=== PATIENT | male | born 1950 | race Two or more races ===

== ENCOUNTER 2024-07-10 18:21 | Inpatient (IN) | payer MEDICARE, MEDICAID, SELFPAY ==
[2024-07-10] VITALS (8 sets, daily range): BP systolic 137–162; BP diastolic 75–96; PULSE 78–144; RESP 18–37; TEMP 37.3–40; O2SAT 89–99; BMI 27.4
--- NOTE | 2024-07-10 19:19 | EDNOTE_ITS ---
ED SOB =RME/HPI General Chief Complaint: Shortness of Breath/Dyspnea Stated Complaint: SOB Time Seen by Provider: 07/10/24 18:59 Arrival date/time: 07/10/24 18:21 RME / HPI RME / HPI Narrative: Dr. Seth?s Main ED Evaluation: 73yo male with pmhx HTN presents to the ED for a chief complaint of shortness of breath. Patient's daughter states the patient was seen 3 days ago at [facility] due to having a cough, wheezing, and shortness of breath. He was prescribed OTC cough syrup and a Z-pack (is currently on day 3). 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 Patient denies any head strikes or loss of consciousness. He denies any headache, neck pain, chest pain, abdominal pain, extremity pain or any other associated symptoms. Denies any chills, sweating or any other associated symptoms. No known allergies. Related Data Previous Rx's ?Medication ?Instructions ?Recorded sulfamethoxazole 400 1 tab PO BID #20 tabs 11/26/21 mg-trimethoprim 80 mg tablet (Bactrim) tramadol 50 mg tablet 50 mg PO BID PRN pain #10 tabs 11/26/21 albuterol sulfate 90 mcg/actuation 2 puff inhalation Q6H PRN 10/08/23 aerosol inhaler shortness of breath or wheezing #8.5 grams benzonatate 200 mg capsule 200 mg PO BID PRN cough #20 caps 10/08/23 prednisone 50 mg tablet 50 mg PO QDAY #7 tabs 10/08/23 Allergies Allergy/AdvReac Type Severity Reaction Status Date / Time No Known Allergies Allergy Unknown Uncoded 03/19/14 09:34 Review of Systems Review of Systems Systems Reviewed: All systems reviewed, normal except as documented Narrative Review of Systems: Gen: No fever, no chills, no weight loss EYES: No discharge, no visual changes, no pain HEENT: No ear pain, no congestion, no sore throat PULM: + shortness of breath, + cough, no congestion, + wheezing CV: No chest pain, no dyspnea on exertion, no palpitations GI: No nausea, no vomiting, no diarrhea, no pain, no constipation : No frequency, no urgency, no dysuria Musc/skel: No joint pain, no back pain Skin: No rash. Warm and dry. Psyc: No hallucinations, no depression Heme/Lymph: No easy bleeding or bruising tendencies Neuro: No weakness, no headache Past Medical History Past Medical History CARDIAC: Negative Congestive Heart Failure RESPIRATORY: Negative Chronic Obstructive Pulmonary Disease (COPD) GENITOURINARY: Positive Renal Disease ENDOCRINE: Negative Diabetes Mellitus Type 1 or Diabetes Mellitus Type 2 Social History SMOKING STATUS: Never smoker ED Exam Narrative Physical exam: GENERAL APPEARANCE: alert and oriented x 4, well-developed, well-nourished, no acute distress VITALS: All vitals were reviewed and the pulse ox is 95% on 4L/NC, which is hypoxic according to my interpretation. HEENT: Normocephalic, atraumatic; pupils equal, round, reactive to light; EOMI; mucous membranes pink, moist; oropharynx clear NECK: Supple LUNGS: no wheezes, rales and rhonchi bilaterally HEART: Tachycardic in the 120s, regular rhythm; normal S1, S2; no murmurs ABDOMEN: non distended; normal BS; soft, no tenderness, no guarding, no rebound; no masses, no organomegaly, no hernia BACK: no CVA tenderness EXTREMITIES: atraumatic; no edema NEUROLOGIC: awake; alert and oriented x4; cranial nerves II-XII grossly intact; no focal sensory or motor deficits PSYCHIATRIC: appropriate mood and affect SKIN: warm, dry, normal color; no rashes Course Course Course Narrative: 1927: Sepsis alert initiated. Orders made at this time are congruent with ED Adult Sepsis Order List. Re-evaluation is to be completed. CXR is ordered for determining the etiology of shortness of breath. 1941: NS IVF started. 2011: Sepsis reassessment performed consisting of lab review, vitals, physical exam including auscultation of heart, lungs, and visual evaluation of capillary refills, mucosal membranes and extremities. Quality Measures Possible source: unknown Blood cultures ordered: yes Antibiotic ordered: Yes Pertinent labs: 07/10/24 07/10/24 19:44 23:16 Lactic Acid 2.3 H mMol/L 1.0 mMol/L (0.4-2.0) (0.4-2.0) Procalcitonin 0.28 ng/ml (0.0-0.49) sepsis Orders Category Date Time Status Bedside COVID-19 Antigen Test NOW Care 07/10/24 21:23 Active Bedside Influenza A&B Antigen Test NOW Care 07/10/24 21:[address] Screening NOW Care 07/10/24 22:26 Active School Cook STAT Care 07/10/24 19:27 Active Continuous Pulse Oximetry STAT Care 07/10/24 19:27 Completed EKG (ED ONLY) *Do not use* NOW Care 07/10/24 19:27 Completed Insert IV NOW Care 07/10/24 19:27 Active NPO STAT Care 07/10/24 19:27 Active Strict Intake and Output Routine Care 07/10/24 19:[address] abdomen pelvis w con Stat Exams 07/10/24 22:26 Ordered EKG (ED Only) Stat Exams 07/10/24 19:27 Draft XR chest 1V portable Stat Exams 07/10/24 19:27 Completed B-Type Natriuretic Peptide Stat Lab 07/10/24 19:44 Completed Blood Culture (Lab) Stat Lab 07/10/24 19:44 Received CBC Stat Lab 07/10/24 19:44 Completed Comprehensive Metabolic Panel Stat Lab 07/10/24 19:44 Completed LDH (Lactate Dehydrogenase) Stat Lab 07/10/24 19:44 Completed Lactate (Lactic Acid) Stat Lab 07/10/24 19:44 Completed Lactic Acid, 3 HR Stat Lab 07/10/24 23:16 Completed Lipase Stat Lab 07/10/24 19:44 Completed Magnesium Stat Lab 07/10/24 19:44 Completed Partial Thromboplastin Time Stat Lab 07/10/24 19:44 Completed Phosphorous Stat Lab 07/10/24 19:44 Completed Procalcitonin Stat Lab 07/10/24 19:44 Completed Prothrombin Time with INR Stat Lab 07/10/24 19:44 Completed Troponin I Stat Lab 07/10/24 19:44 Completed Urinalysis Stat Lab 07/10/24 19:50 Completed Urine Culture Stat Lab 07/10/24 19:50 Received Acetaminophen Ivpb [Ofirmev Inj] Med 07/10/24 19:40 Discontinued 1,000 mg in 100 ml IV NOW Piper/Tazo 3.375 gm [Zosyn] Med 07/10/24 19:27 Discontinued 3.375 gm in 50 ml IV X1 Sodium Chloride 0.9% 1000 ml [Ns] 1,638 ml Med 07/10/24 19:27 Discontinued IV 1,638 mls/hr Vancomycin Inj 1,000 mg Med 07/10/24 19:30 Discontinued Sodium Chloride 0.9% 250 ml [Ns] 250 ml IV X1 Oxygen Delivery NOW RT 07/10/24 19:27 Active Vital Signs Vital signs: Vital Signs Temperature 99.1 F 07/10/24 18:39 Pulse Rate 112 H 07/10/24 18:39 Respiratory Rate 18 07/10/24 18:39 Blood Pressure 156/83 H 07/10/24 18:39 Pulse Oximetry (%) 97 07/10/24 18:39 Oxygen Delivery Method Nasal Cannula 07/10/24 18:39 Oxygen Flow Rate 5 07/10/24 18:39 Shortness of Breath / Dyspnea MDM Narrative MDM Narrative:: Scribe Attestation: 07/10/24 - Ivy Miller am scribing for and in the presence of Dr. Seth. Patient data External records reviewed:: [facility] previous records (Per chart review, patient was seen here on 10/08/23 for near syncope.) Clinical information provided by:: patient Social determinants that could affect healthcare access:: substance use (smokes cigarettes) Patient has the following chronic illnesses:: HTN How is presenting disease/condition affected by chronic disease/condition?: uneffected by Evaluation data The following diagnostics were reviewed and interpreted by me:: lab results, radiology exam(s) and EKG tracing(s) Lab and/or radiology exams considered but not ordered:: none Interpretation Summary: CBC is normal, CMP is normal, Lactic Acid is elevated at 2.3, troponin is normal, Procalcitonin is normal, Bedside COVID and Influenza are negative, according to my interpretation. CXR shows a right perihilar infiltrate, normal cardiac silhouette, sharp diaphragmatic edge, and normal costophrenic angles, according to my interpretation. EKG done at 1938, sinus tachycardia, rate of 122, left axis deviation, no ectopy, left anterior fasicular block, Q waves in lead II, lead III, aVF, V1, and V2, no STEMI, according to my interpretation. ----- Telerad Preliminary Report Draft Patient: HALEY TRIPATHI [facility]. Record#: [id number] Birthdate: 1950 Age/Sex: 73 / M Location: [facility] Attending Dr: Ordering Physician: Date of Service: Procedure(s): Accession Number(s): cc: ~ CT scan of the abdomen and pelvis with intravenous contrast (axial sections with sagittal and coronal reformats) July 11, 2024 at 0054 hours Clinical History: Hematuria. Comparison: No prior study is available for comparison. Findings: Bibasilar dependent atelectasis is present. Emphysematous changes are noted in the lungs. Multiple calcified calculi are noted within the gallbladder, the largest measuring 3 mm, without evidence of gallbladder wall thickening or pericholecystic fluid. The liver, pancreas, spleen, kidneys and adrenals are unremarkable. No evidence of bowel obstruction. There are multiple colonic diverticula without evidence of diverticulitis. The appendix is not definitively visualized; however, there is no evidence of inflammatory process in the right lower quadrant to suggest appendicitis. There is no mesenteric or retroperitoneal adenopathy. The aorta and its branches demonstrate moderate atheromatous calcification with focal aneurysm and eccenteric thrombus in the infrarenal abdominal aorta. The urinary bladder is unremarkable. There is mild prostatomegaly. There is no free fluid or free air. Degenerative changes are identified in the spine. Impression: 1. 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 2. No evidence of bowel obstruction, free air or abscess. 3. No evidence of renal/ureteric calculus or hydroureteronephrosis. 4. Cholelithiasis without evidence of acute cholecystitis. 5. Colonic diverticulosis without evidence of diverticulitis. 6. Other findings as described above. Report Electronically Signed By: Simone Shaw 07/11/2024 2:12:33 AM [EST] Medications / Prescriptions Medications or Prescriptions considered but not ordered:: none Medication administrations:: Medication Administration History Discontinued Medications Sodium Chloride (Ns) 1,638 mls @ 1,638 mls/hr 30 ml/kg infuse over 60 min (1638 ml) IV .Q1H ONE Stop: 07/10/24 20:26 Last Infusion: 07/10/24 20:43 Dose: Infused Documented By: Admin: 07/10/24 19:42 Dose: 1,638 mls/hr Documented By: CAMI Piperacillin/Tazobactam/Dextrose (Zosyn) 3.375 gm in 50 mls @ 100 mls/hr IV X1 ONE Stop: 07/10/24 19:56 Last Infusion: 07/10/24 20:42 Dose: Infused Documented By: Admin: 07/10/24 19:42 Dose: 100 mls/hr Documented By: CAMI Vancomycin HCl 1,000 mg/ (Sodium Chloride) 250 mls @ 150 mls/hr IV X1 ONE Stop: 07/10/24 21:09 Last Infusion: 07/10/24 23:20 Dose: Infused Documented By: Admin: 07/10/24 20:42 Dose: 150 mls/hr Documented By: IMMANUEL Acetaminophen (Ofirmev Inj) 1,000 mg in 100 mls @ 250 mls/hr IV NOW ONE Stop: 07/10/24 20:03 Last Infusion: 07/10/24 20:42 Dose: Infused Documented By: Admin: 07/10/24 19:45 Dose: 250 mls/hr Documented By: CAMI see above, if any Consultations Consultation(s) initiated? (list below): Yes Consultation #1 (Physician, Specialty, Details): Discussed case with [Dr. Farooq] from Hospitalist service regarding admission. Discussed patients ED course, exam findings, labs, and radiology results. The Hospitalist [agrees] to accept the patient for admission. Time: 22:16 Consultation #2 (Physician, Specialty, Details): Dr. Farooq called back, requesting a CT abdomen pelvis due to the patient having hematuria. Time: 22:26 Consultation #3 (Physician, Specialty, Details): Discussed case with [attending Dr. Farooq] from Hospitalist service regarding admission. Discussed patients ED course, exam findings, labs, and radiology results. The Hospitalist [agrees] to accept the patient for admission. Time: 02:21 Diagnosis Shortness of Breath Differential Diagnosis: congestive heart failure, community acquired pneumonia, pulmonary embolism and other (pneumothorax) Most likely diagnosis given after review of the tests above:: see below Admission Indicated Admission indicated?: indicated Admission Request Was there a request for admission?: Yes Admission Attestation Admission request attestation: Discussed case with [] from Hospitalist service regarding admission. Discussed patients ED course, exam findings, labs, and radiology results. The Hospitalist [agrees,declines] to accept the patient for admission. Disposition Plan Disposition Plan: Admit Critical Care Time Critical Care Time Critical Care Time: Yes Total Critical Care Time (min.): 50 Attestation: The high probability of sudden, clinically significant deterioration in the patient?s condition required the highest level of my preparedness to intervene urgently. The services I provided to this patient were to treat and/or prevent clinically significant deterioration. Services included the following: chart data review, reviewing nursing notes and/or old charts, documentation time, crm consultant collaboration regarding findings and treatment options, medication orders and management, direct patient care, vital sign assessments and ordering, interpreting and reviewing diagnostic studies and lab tests. Aggregate critical care time includes only time during which I was engaged in work directly related to the patient?s care, as described above, whether at bedside or elsewhere in the Emergency Department. It did not include time spent performing other reported procedures or the services of residents, students, nurses or physician assistants. Discharge Plan Plan Patient Disposition: Admit Acute Care w/in Hospital Prescriptions/Referrals Prescriptions/Med Rec: No Action sulfamethoxazole-trimethoprim [Bactrim] 400-80 mg tablet 1 tab PO BID Qty: 20 0RF tramadol 50 mg tablet 50 mg PO BID PRN (Reason: pain) Qty: 10 0RF benzonatate 200 mg capsule 200 mg PO BID PRN (Reason: cough) Qty: 20 0RF prednisone 50 mg tablet 50 mg PO QDAY Qty: 7 0RF albuterol sulfate 90 mcg/actuation HFA aerosol inhaler 2 puff inhalation Q6H PRN (Reason: shortness of breath or wheezing) Qty: 8.5 0RF Referrals: Marvin Pisano MD [Primary Care Provider] - In 1 week Problem List Clinical Impression: Dehydration, Severe sepsis Patient/Caregiver Discharge Instructions Print Language: Argentine Stand Alone Forms: Fiona Award Info., Patient Portal Info Letter
--- NOTE | 2024-07-10 19:27 | EKG_ITS ---
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
--- NOTE | 2024-07-10 19:27 | XR_ITS ---
Examination: AP chest single view Technique one AP portable upright chest single view Exam date and time: July 02, 2024 1950 hrs. Comparison October 08, 2023 Indications: Shortness of breath today. Findings: Normal heart size Mild to moderate vascular congestion including central vascular engorgement No lobar pneumonia or pulmonary edema Moderate osteopenia Impression: Mild to moderate vascular congestion including central vascular engorgement No jose pulmonary edema No pneumonia
[2024-07-10] MEDS: PIPER/TAZO 3.375 GM 3.375 GM/50 ML BAG IV (19:42)
[2024-07-10] MEDS: SODIUM CHLORIDE 0.9% 1000 ML 1,638 ML 1638 ML IV (19:42)
[2024-07-10] MEDS: ACETAMINOPHEN IVPB 1,000 MG/100 ML VIAL 250 MG IV (19:45)
[2024-07-10 19:49] LABS: Lactate (Lactic Acid) 2.3 mMol/L (0.4-2.0)
[2024-07-10 19:51] LABS: Basophils % (Auto) 0 % (0-2.5); Eosinophils % (Auto) 0 % (0-10); Hematocrit 47.7 % (41.0-53.0); Hemoglobin 15.9 g/dL (13.5-16.0); Immature Granulocytes % (Auto) 0 % (0-0); Immature Granulocytes Auto 0.03 Thou/mm3 (0.00-0.00); Lymphocytes # (Auto) 0.8 Thou/mm3 (1.0-4.8); Lymphocytes % (Auto) 9 % (10-50); Mean Corpuscular HGB Conc 33.3 g/dl (31.0-37.0); Mean Corpuscular Volume 84 fL (80-100); Monocytes # (Auto) 0.9 Thou/mm3 (0.0-0.8); Monocytes % (Auto) 11 % (0-12); Neutrophils # (Auto) 6.3 Thou/mm3 (1.8-7.7); Neutrophils % (Auto) 79 % (37-80); Nucleated Red Blood Cell % 0 /100 WBC (0); Platelet Count 198 Thou/mm3 (140-440); RDW Standard Deviation 42.9 fL (35.1-43.9); Red Blood Count 5.67 Miln/mm3 (4.50-5.90)
[2024-07-10 20:03] LABS: Collection Type, Urine Clean Catch
[2024-07-10 20:08] LABS: Bilirubin,Urine Negative (Negative); Blood,Urine 2+ (Negative); Clarity,Urine Clear (Clear/Hazy); Color,Urine Yellow (Lt Yel-Yel); Glucose, Urine Negative (Negative); Hyaline Casts,Urine < 1 /hpf (0-1); Ketones,Urine 1+ (Negative); Leukocyte Esterase,Urine Negative (Negative); Nitrite,Urine Negative (Negative); Protein,Urine 1+ (Neg - Trace); RBC,Urine 19 /hpf (0-3); Specific Gravity,Urine 1.028 (1.001-1.035); Squamous Epithelial Cell,Urine < 1 /hpf (0-5); WBC,Urine 3 /hpf (0-5)
[2024-07-10 20:19] LABS: B-Type Natriuretic Peptide 41 pg/mL (0-100)
[2024-07-10 20:22] LABS: Alanine Aminotransferase 19 U/L (10-49); Albumin, Serum 4.4 gm/dL (3.4-4.8); Albumin/Globulin Ratio 2.1 (1.2-2.2); Alkaline Phosphatase 63 U/L (46-116); Anion Gap 11 (7-16); Aspartate Amino Transferase 42 U/L (0-34); BUN/Creatinine Ratio 23 Ratio (12-20); Bilirubin,Total 0.6 mg/dL (0.3-1.2); Blood Urea Nitrogen 27 mg/dL (9-23); Calcium 9.6 mg/dL (8.3-10.6); Calcium (Corrected) 9.6 mg/dL (8.5-10.1); Carbon Dioxide 24.8 mMol/L (20.0-31.0); Chloride 101 mMol/L (98-107); Creatinine (Component) 1.2 mg/dL (0.6-1.3); Estimated Creatinine Clearance 45.8 mL/min (>60); Globulin 2.1 gm/dL (2.3-3.5); Glucose 94 mg/dL (74-106); Lipase 35 U/L (12-53); Osmolality,Calculated 278 (275-295); Phosphorous 2.9 mg/dL (2.4-5.1); Sodium 137 mMol/L (136-145); Total Protein 6.5 gm/dL (5.7-8.2); eGFR > 60 See Note
[2024-07-10 20:30] LABS: INR 1.2 (0.9-1.3); Prothrombin Time 12.9 Seconds (9.0-12.2)
[2024-07-10 20:39] LABS: Procalcitonin 0.28 ng/ml (0.0-0.49)
[2024-07-10] MEDS: Vancomycin Inj 1,000 MG in SODIUM CHLORIDE 0.9% 250 ML 250 ML 150 MG IV (20:42)
[2024-07-10 22:00] LABS: LDH (Lactate Dehydrogenase) 263 U/L (120-246)
--- NOTE | 2024-07-10 22:26 | XR_ITS ---
Examination: CT abdomen with intravenous contrast CT pelvis with intravenous contrast 2-D coronal reconstructions 2-D sagittal reconstructions Date and time of exam:July 11, 2024 0054 hrs. Indications: Abdominal pain hematuria onset today Comparison: May 18, 2021. CTDI: vol (mGy) 5.84 DLP: (mGycm) 318 Technique: Multiple axial sections of the abdomen and pelvis have been obtained. 64 slice high-resolution scanner used. 3 mm axial sections have been obtained, post intravenous injection 60 cc [id number] 2-D sagittal, coronal reconstructions obtained. Low dose protocols were performed. One or more of the following dose reduction techniques were used; automated exposure control, adjustment of the mA and/or KV according to patient size, use of iterative reconstruction technique. Findings: Liver is irregular in contour with fatty infiltration Multiple small gallstones Spleen is not enlarged Gastric mucosa is thickened No pancreatic or adrenal mass No renal or ureteral calculi Transverse dimension infrarenal abdominal aorta 3 cm with significant thrombus in the distal abdominal aorta, image 92, 40% stenosis No pericecal inflammatory change Scattered colonic diverticulosis, no diverticulitis Transverse prostate dimension 4.8 cm have Advanced degenerative disc disease L5-S1 Impression: Liver is irregular in contour, primary hepatocellular disease pattern Cholelithiasis, negative for cholecystitis No renal or ureteral calculi Mild aneurysmal dilatation infrarenal abdominal aorta with significant thrombus in the distal abdominal aorta causing 40% stenosis Colonic diverticulosis, no diverticulitis No bowel obstruction
[2024-07-10 22:47] LABS: Reflex Lactate? Y
[2024-07-11] VITALS (16 sets, daily range): BP systolic 128–160; BP diastolic 73–92; PULSE 75–105; RESP 17–94; TEMP 36.4–37.1; O2SAT 92–100; BMI 24.6
--- NOTE | 2024-07-11 02:12 | PRELIM_ITS ---
CT scan of the abdomen and pelvis with intravenous contrast (axial sections with sagittal and coronal reformats) July 11, 2024 at 0054 hoursClinical History: Hematuria.Comparison: No prior study is available for comparison. Findings:Bibasilar dependent atelectasis is present. Emphysematous changes are noted in the lungs. Multiple calcified calculi are noted within the gallbladder, the largest jasvir uring 3 mm, without evidence of gallbladder wall thickening or pericholecystic fluid. The liver, vo creas, spleen, kidneys and adrenals are unremarkable.No evidence of bowel obstruction. There are mult iple colonic diverticula without evidence of diverticulitis. The appendix is not definitively visuali zed; however, there is no evidence of inflammatory process in the right lower quadrant to suggest fernando endicitis. There is no mesenteric or retroperitoneal adenopathy. The aorta and its branches demonstra te moderate atheromatous calcification with focal aneurysm and eccenteric thrombus in the infrarenal abdominal aorta. The urinary bladder is unremarkable. There is mild prostatomegaly. There is no free fluid or free air.Degenerative changes are identified in the spine. Impression:1. 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 2. No evidence of bowel obstruction, free air or abscess. 3. No evidence of renal/ureteric calculus or hydroureteronephrosis. 4. Cholelithiasis wi thout evidence of acute cholecystitis. 5. Colonic diverticulosis without evidence of diverticulitis. 6. Other findings as described above. Report Electronically Signed By: Simone Shaw 07/11/2024 2:12:3 3 AM [EST]
--- NOTE | 2024-07-11 04:08 | PD.RESHP ---
Documentation for date of: 07/11/24 [facility] History of Present Illness Chief complaint: Shortness of breath, cough, myalgia History of present illness: Mr Gage is a 73-year-old male with past medical history of COPD/asthma, hypothyroidism and hypertension who presented to [facility] on 07/10/24 with chief complaint of shortness of breath cough and myalgias. Patient reported that his symptoms started about 2 weeks ago, complains of shortness of breath, productive cough with clear expectoration, myalgias and bodyaches which have progressed over the course of 2 weeks, he did see his primary care doctor at [facility] who prescribed azithromycin for his symptoms but they did not improve. He has no other complaints, does not use any supplemental oxygen at home, denies any sick contacts, recent travel denies any chest pain and headache. ED Course: Patient did develop fever 104, tachypnea, respiratory rate 37 in ED, patient met SIRS criteria 3/4. ED Vitals: On presentation BP 156/83, P112, RR 18, temp 99.1, O2 sat 97 patient on 5 L nasal cannula ED Labs:Patient patient labs in ED significant for BUN 27, lactate 2.3, AST 42, LDH 263, globulin 2.1 ED Imaging:Chest x-ray in ED significant for mild to moderate vascular congestion including central vascular engorgement, no jose pulmonary edema no pneumonia. Preliminary CTAP with contrast report shows Focal aneurysm with eccenteric thrombus in the infrarenal abdominal aorta. No evidence of bowel obstruction, free air or abscess. No evidence of renal/ureteric calculus or hydroureteronephrosis. Cholelithiasis without evidence of acute cholecystitis. Colonic diverticulosis without evidence of diverticulitis. ED Treatment:Patient was given 1.638 L NaCl, Zosyn vancomycin and Tylenol 1000 mg in ED Patient admitted for acute hypoxic respiratory failure secondary to community-acquired pneumonia. Review of Systems Review of Systems Narrative Review of Systems: ROS: -CONSTITUTIONAL: Denies weight loss, positive for fever and chills. -HEENT: Denies changes in vision and hearing. Positive for blindness in left eye. -RESPIRATORY: Positive for SOB and cough. -CV: Denies palpitations and Chest Pain. -GI: Denies abdominal pain, nausea, vomiting,constipation and diarrhea. -: Denies dysuria and urinary frequency. -MSK: Positive for myalgia and denies joint pain. -SKIN: Denies rash and pruritus. -NEUROLOGICAL: Denies headache and syncope. -PSYCHIATRIC: Denies recent changes in mood. Denies anxiety and depression. Past Medical History Past Medical History Comments PMH COMMENT: PMH: Positive for COPD/asthma, hypothyroidism and hypertension PSHx: Left eye surgery Allergies: No known allergies Social history: -Smoking: Positive for smoking 1 pack/day for 50 years in the past -Alcohol Use: Reports drinking about 1 beer per day, last drink about a week ago -Illicit Drug Use: Denies -Occupation: Worked for [employer] in the past Family History: No significant family history Exam Vital Signs Temp Pulse Resp BP Pulse Ox O2 Del Method O2 Flow Rate 98.2 F 80 18 146/82 H 100 Nasal Cannula 4 07/11/24 00:42 07/11/24 00:42 07/11/24 00:42 07/11/24 00:42 07/11/24 00:42 07/11/24 00:42 07/11/24 00:42 Narrative Exam Physical Exam General: Awake and in no acute distress. Conversational and non-toxic appearing. HEENT: Normocephalic, atraumatic, mucous membranes moist. Positive for blindness in left eye. Heart: Regular rate and rhythm, no murmurs. Lungs: Mild crackles bilaterally, no wheezing. Abdomen: Soft, nondistended, nontender, positive bowel sounds. ?No guarding or rebound tenderness. Neurologic: Alert and oriented x3, no gross neurological deficit, and patient able to move all 4 extremities. Extremities: No edema. Skin: No rash or ecchymoses. Results: Labs 07/11/24 04:27 07/11/24 04:27 Labs: Short CBC 07/10/24 Range/Units 19:44 WBC 8.0 (3.8-10.6) Thou/mm3 Hgb 15.9 (13.5-16.0) g/dL Hct 47.7 (41.0-53.0) % Plt Count 198 (140-440) Thou/mm3 BMP 07/10/24 19:44 Sodium 137 Potassium 4.0 Chloride 101 Carbon Dioxide 24.8 BUN 27 H Creatinine 1.2 Glucose 94 Calcium 9.6 Cardiac Enzymes 07/10/24 Range/Units 19:44 Troponin I 0.020 (0.0-0.045) ng/mL Liver Function 07/10/24 Range/Units 19:44 Total Bilirubin 0.6 (0.3-1.2) mg/dL AST 42 H (0-34) U/L ALT 19 (10-49) U/L Alkaline Phosphatase 63 (46-116) U/L Albumin 4.4 (3.4-4.8) gm/dL Urine 07/10/24 Range/Units 19:50 Urine Color Yellow (Lt Yel-Yel) Urine Clarity Clear (Clear/Hazy) Urine pH 6.0 (5.0-7.0) Ur Specific [place] 1.028 (1.001-1.035) Urine Protein 1+ A (Neg - Trace) Urine Glucose (UA) Negative (Negative) Quality Measures Quality Measures sepsis Current suspected stage: ruled out Possible source: unknown Blood cultures ordered: yes Antibiotic ordered: Yes Advance care planning discussed with:: patient Medications Home Medications and Allergies Allergies Allergy/AdvReac Type Severity Reaction Status Date / Time No Known Allergies Allergy Unverified 07/11/24 06:09 Visit Medications Acetaminophen (Acetaminophen 325 Mg Tablet) 650 mg PO Q6H PRN PRN Reason: Pain and Fever >100.3 Stop: 08/10/24 03:48 Albuterol/Ipratropium (Albuterol/Ipratropium (Duoneb) Rt Gayla 3 Ml Nebu) 3 ml INH Q6HRRT SONDRA Stop: 08/10/24 06:59 Benzonatate (Benzonatate 100 Mg Capsule) 100 mg PO Q8HR PRN; Protocol PRN Reason: COUGH Stop: 08/10/24 04:00 Guaifenesin (Guaifenesin Syrup 200 Mg/10 Ml Udc) 100 mg PO QID PRN; Protocol PRN Reason: COUGH Stop: 08/10/24 04:02 Heparin Sodium (Porcine) (Heparin Sod Inj 5000 Unit/Ml Vial) 5,000 unit SC Q8HR SONDRA Stop: 07/25/24 05:59 Ceftriaxone Sodium/Dextrose (Rocephin/D5w 1gm Iv Premix) 50 mls @ 100 mls/hr IV QDAY SONDRA Stop: 07/18/24 03:58 Doxycycline Hyclate 100 mg/ (Sodium Chloride) 100 mls @ 100 mls/hr IV BID SONDRA Stop: 07/18/24 08:59 Ceftriaxone Sodium/Dextrose (Rocephin/D5w 1gm Iv Premix) 50 mls @ 100 mls/hr IV X1 ONE Stop: 07/11/24 04:44 Doxycycline Hyclate 100 mg/ (Sodium Chloride) 100 mls @ 100 mls/hr IV X1 ONE Stop: 07/11/24 05:14 Ondansetron HCl (Ondansetron Inj 2 Mg/Ml Inj 2 Ml) 4 mg IV Q6H PRN; Protocol PRN Reason: NAUSEA OR VOMITING Stop: 08/10/24 03:48 Sennosides (Senna Tablet) 1 tab PO QDAY SONDRA; Protocol Stop: 08/10/24 08:59 Discontinued Medications Sodium Chloride (Ns) 1,638 mls @ 1,638 mls/hr 30 ml/kg infuse over 60 min (1638 ml) IV .Q1H ONE Stop: 07/10/24 20:26 Last Infusion: 07/10/24 20:43 Dose: Infused Piperacillin/Tazobactam/Dextrose (Zosyn) 3.375 gm in 50 mls @ 100 mls/hr IV X1 ONE Stop: 07/10/24 19:56 Last Infusion: 07/10/24 20:42 Dose: Infused Vancomycin HCl 1,000 mg/ (Sodium Chloride) 250 mls @ 150 mls/hr IV X1 ONE Stop: 07/10/24 21:09 Last Infusion: 07/10/24 23:20 Dose: Infused Acetaminophen (Ofirmev Inj) 1,000 mg in 100 mls @ 250 mls/hr IV NOW ONE Stop: 07/10/24 20:03 Last Infusion: 07/10/24 20:42 Dose: Infused Sodium Chloride (Sodium Chloride Rt 10% 15 Ml Nebu) 5 ml INH X1 ONE Stop: 07/11/24 03:50 Assessment & Plan Plan Summary: Mr Gage is a 73-year-old male with past medical history of COPD/asthma, hypothyroidism and hypertension who presented to [facility] on 07/10/24 with chief complaint of shortness of breath cough and myalgias. Patient admitted for acute hypoxic respiratory failure secondary to community-acquired pneumonia. # Acute hypoxic respiratory failure 2/2 # Community-acquired pneumonia # SIRS 3/4 positive, suspicion of sepsis # COPD vs Asthma -In ED temp 104, RR 37, heart rate 124, patient met SIRS 3/4 criteria with source pulmonary. Elevated lactate 2.3, improved with IV fluid. -Complains of progressive shortness of breath productive cough with clear expectoration, myalgias and bodyaches since 2 weeks, failed outpatient therapy on azithromycin. -Does use albuterol inhaler at home for wheezing, shortness of breath, chronic smoker in the past, 50 pack years. Does not use supplemental oxygen at home currently requiring 4 L on nasal cannula. -Bedside flu and COVID-negative -Chest x-ray in ED significant for mild to moderate vascular congestion including central vascular engorgement, no jose pulmonary edema no pneumonia -Patient was given 1.638 L NaCl, Zosyn vancomycin and Tylenol 1000 mg in ED. -Curb 65 score 3 points Plan: -Continue ceftriaxone and doxycycline (07/10- -Supplemental oxygen as needed -Tylenol as needed for fever -MRSA nasal screen -Follow-up RSV, Legionella -Sputum culture/Gram stain -Follow-up blood and urine culture -DuoNebs scheduled every 6 hours #Infrarenal abdominal aortic aneurysm Preliminary CTAP with contrast report shows Focal aneurysm with eccenteric thrombus in the infrarenal abdominal aorta. Called telemetry radiology to confirm size of AAA, Dr. Shaw reported size to be about 3 cm, patient's record reviewed CT abdomen pelvis from 2020 shows infrarenal abdominal aorta dimension 29 mm. Patient is asymptomatic denies any back pain. Stable size of the incidental finding, no thrombus in the old CTAP though. Plan: -Monitor for symptoms -Consider outpatient follow-up with vascular surgeon -Follow final read by radiology # Hypothyroidism # Hypertension # Complete blindness left eye -Blood pressure 146/82 currently, will hold antihypertensives -Resumed home dose levothyroxine 50 mcg DVT prophylaxis: Heparin GI prophylaxis: Not indicated Diet: Cardiac Lines: Peripheral IV Code status: Full code Case discussed with Attending Dr. Gomez. Nirav Tejada PGY1 Attending Provider Attestation/Addendum 73-year-old male patient who is a chronic smoker was admitted for shortness of breath, wheezing. In the ER the patient was noted to be hypoxic. Dr. Seth called me for admission for sepsis possible pneumonia. He noted perihilar infiltrates. Patient had CT scan of the abdomen showing infrarenal aortic aneurysm with thrombus.. Patient denies chest pain no back pain. Blood pressure is stable. Patient has microscopic hematuria. He is alert and oriented. He will be admitted for further management.
[2024-07-11 04:38] LABS: Basophils % (Auto) 0 % (0-2.5); Eosinophils % (Auto) 0 % (0-10); Hematocrit 44.3 % (41.0-53.0); Hemoglobin 14.7 g/dL (13.5-16.0); Immature Granulocytes % (Auto) 0 % (0-0); Immature Granulocytes Auto 0.02 Thou/mm3 (0.00-0.00); Lymphocytes # (Auto) 1.4 Thou/mm3 (1.0-4.8); Lymphocytes % (Auto) 18 % (10-50); Mean Corpuscular HGB Conc 33.2 g/dl (31.0-37.0); Mean Corpuscular Hemoglobin 28.3 pg (25.0-35.0); Mean Corpuscular Volume 85 fL (80-100); Monocytes # (Auto) 0.7 Thou/mm3 (0.0-0.8); Monocytes % (Auto) 9 % (0-12); Neutrophils # (Auto) 5.8 Thou/mm3 (1.8-7.7); Neutrophils % (Auto) 73 % (37-80); Nucleated Red Blood Cell % 0 /100 WBC (0); Platelet Count 158 Thou/mm3 (140-440); RDW Standard Deviation 43.8 fL (35.1-43.9); White Blood Count 8.1 Thou/mm3 (3.8-10.6)
[2024-07-11] MEDS: cefTRIAXone/D5w 1gm IV premix 50 ML IV (04:40)
[2024-07-11 04:59] LABS: Alanine Aminotransferase 12 U/L (10-49); Albumin/Globulin Ratio 1.9 (1.2-2.2); Alkaline Phosphatase 52 U/L (46-116); Anion Gap 7 (7-16); Aspartate Amino Transferase 32 U/L (0-34); BUN/Creatinine Ratio 19 Ratio (12-20); Bilirubin,Total 0.7 mg/dL (0.3-1.2); Blood Urea Nitrogen 17 mg/dL (9-23); Calcium 8.5 mg/dL (8.3-10.6); Calcium (Corrected) 8.5 mg/dL (8.5-10.1); Carbon Dioxide 25.1 mMol/L (20.0-31.0); Cardiac Risk Estimate 3.1 RATIO (4.0-6.7); Chloride 104 mMol/L (98-107); Cholesterol 122 mg/dL (132-200); Creatinine (Component) 0.9 mg/dL (0.6-1.3); Estimated Creatinine Clearance 61.1 mL/min (>60); Globulin 2.1 gm/dL (2.3-3.5); Glucose 83 mg/dL (74-106); HDL Cholesterol 40 mg/dL (40-60); LDL Cholesterol,Calculated 68 mg/dL (0-130); Osmolality,Calculated 272 (275-295); Phosphorous 3.2 mg/dL (2.4-5.1); Sodium 136 mMol/L (136-145); Thyroid Stimulating Hormone 1.35 uIU/mL (0.55-4.78); Total Protein 6.1 gm/dL (5.7-8.2); Triglycerides 71 mg/dL (30-150); eGFR > 60 See Note
[2024-07-11] MEDS: DOXYCYCLINE INJ 100 MG in SODIUM CHLORIDE 0.9% (P) 100 ML IV ×2 (05:53→20:45)
[2024-07-11] MEDS: LEVOTHYROXINE SODIUM 25 MCG TABLET 50 MCG PO (05:58)
[2024-07-11] MEDS: HEPARIN SOD INJ 5000 UNIT/ML VIAL SC ×3 (06:00→21:47)
[2024-07-11 07:01] LABS: Respiratory Syncytial Virus Ag Negative (Negative)
[2024-07-11] MEDS: ALBUTEROL/IPRATROPIUM (Duoneb) RT SOL 3 ML NEBU INH ×3 (07:09→19:30)
[2024-07-11] MEDS: SENNA TABLET 1 TAB PO (08:24)
--- NOTE | 2024-07-11 11:44 | ESPR_ITS ---
Documentation for date of: 07/11/24 Subjective Subjective Interval history: No acute overnight events. Continued on 1 L NC, satting well, breathing okay. Denies fever, chills, headaches, chest pain, sob, cough, GI or urinary symptoms. Exam Vital Signs Temp Pulse Resp BP Pulse Ox O2 Del Method O2 Flow Rate 98.4 F 105 H 19 146/83 H 98 Nasal Cannula 1 07/11/24 07:54 07/11/24 08:00 07/11/24 07:54 07/11/24 07:54 07/11/24 07:54 07/11/24 07:54 07/11/24 07:54 Narrative Exam GENERAL: Normal appearing elderly male, no apparent distress HEENT: NCAT.?[place]. Oral mucosa is moist. Patent Nares. NECK: Supple, nontender, no thyromegaly, no meningismus, no JVD, no step offs CHEST: Symmetrical, atraumatic, and with equal expansion, Nontender on palpation no deformity and no crepitus. CARDIOVASCULAR: RRR, no m/g/r LUNGS: Mild wheezing and coarse breath sound bilateral. No signs of respiratory distress. ABDOMEN: Soft, flat, nontender. No guarding/rebound tenderness/masses. +BS. No abdominal bruits. EXTREMITIES: Nontender.? No edema/cyanosis.?Moves all 4 extremities well, with full ROM and good CSM. SKIN: Warm and dry, no jaundice/rashes. MSK: No lumbar or midline, no CVA, no paraspinal muscle spasm or tenderness. NEURO: P[place]TM[place] x4, No focal neurologic deficits. Pre-existing left eye blindness. PSYCHIATRIC: Normal mood and affect, cooperative, no SI or HI or hallucinations. Objective Labs 07/11/24 04:27 07/11/24 04:27 Labs: Laboratory Results - last 24 hr 07/10/24 07/10/24 07/10/24 19:44 19:50 23:16 WBC 8.0 RBC 5.67 Hgb 15.9 Hct 47.7 MCV 84 MCH 28.0 MCHC 33.3 RDW Std Deviation 42.9 Plt Count 198 Neut % (Auto) 79 Lymph % (Auto) 9 L [place] % (Auto) 11 Eos % (Auto) 0 Baso % (Auto) 0 Neut # (Auto) 6.3 Lymph # (Auto) 0.8 L [place] # (Auto) 0.9 H Eos # (Auto) 0.0 Baso # (Auto) 0.0 Immature Gran # (Auto) 0.03 H Absolute Nucleated RBC 0.00 Immature Gran % 0 Nucleated RBC % 0 PT 12.9 H INR 1.2 APTT 29.0 Sodium 137 Potassium 4.0 Chloride 101 Carbon Dioxide 24.8 Anion Gap 11 BUN 27 H Creatinine 1.2 Estim Creat Clear Calc 45.8 L eGFR > 60 BUN/Creatinine Ratio 23 H Glucose 94 Calculated Osmolality 278 Lactic Acid 2.3 H 1.0 Calcium 9.6 Corrected Calcium 9.6 Phosphorus 2.9 Magnesium 2.0 Total Bilirubin 0.6 AST 42 H ALT 19 Alkaline Phosphatase 63 Lactate Dehydrogenase 263 H Troponin I 0.020 B-Natriuretic Peptide 41 Total Protein 6.5 Albumin 4.4 Globulin 2.1 L Albumin/Globulin Ratio 2.1 Triglycerides Cholesterol LDL Cholesterol, Calc HDL Cholesterol Cholesterol/HDL Ratio Lipase 35 Procalcitonin 0.28 TSH Ur Collection Type Clean Catch Urine Color Yellow Urine Clarity Clear Urine pH 6.0 Ur Specific [place] 1.028 Urine Protein 1+ A Urine Glucose (UA) Negative Urine Ketones 1+ A Urine Blood 2+ A Urine Nitrite Negative Urine Bilirubin Negative Urine Urobilinogen (Auto) 2.0 Ur Leukocyte Esterase Negative Urine RBC 19 H Urine WBC 3 Ur Squamous Epith Cells < 1 Urine Bacteria None Hyaline Casts < 1 RSV Rapid 07/11/24 07/11/24 04:27 04:49 WBC 8.1 RBC 5.20 Hgb 14.7 Hct 44.3 MCV 85 MCH 28.3 MCHC 33.2 RDW Std Deviation 43.8 Plt Count 158 D Neut % (Auto) 73 Lymph % (Auto) 18 [place] % (Auto) 9 Eos % (Auto) 0 Baso % (Auto) 0 Neut # (Auto) 5.8 Lymph # (Auto) 1.4 [place] # (Auto) 0.7 Eos # (Auto) 0.0 Baso # (Auto) 0.0 Immature Gran # (Auto) 0.02 H Absolute Nucleated RBC 0.00 Immature Gran % 0 Nucleated RBC % 0 PT INR APTT Sodium 136 Potassium 4.0 Chloride 104 Carbon Dioxide 25.1 Anion Gap 7 BUN 17 Creatinine 0.9 Estim Creat Clear Calc 61.1 eGFR > 60 BUN/Creatinine Ratio 19 Glucose 83 Calculated Osmolality 272 L Lactic Acid Calcium 8.5 Corrected Calcium 8.5 Phosphorus 3.2 Magnesium 2.0 Total Bilirubin 0.7 AST 32 ALT 12 Alkaline Phosphatase 52 Lactate Dehydrogenase Troponin I B-Natriuretic Peptide Total Protein 6.1 Albumin 4.0 Globulin 2.1 L Albumin/Globulin Ratio 1.9 Triglycerides 71 Cholesterol 122 L LDL Cholesterol, Calc 68 HDL Cholesterol 40 Cholesterol/HDL Ratio 3.1 L Lipase Procalcitonin TSH 1.35 Ur Collection Type Urine Color Urine Clarity Urine pH Ur Specific [place] Urine Protein Urine Glucose (UA) Urine Ketones Urine Blood Urine Nitrite Urine Bilirubin Urine Urobilinogen (Auto) Ur Leukocyte Esterase Urine RBC Urine WBC Ur Squamous Epith Cells Urine Bacteria Hyaline Casts RSV Rapid Negative Quality Measures Quality Measures sepsis Current suspected stage: ruled out Possible source: unknown Blood cultures ordered: yes Antibiotic ordered: Yes Advance care planning discussed with:: patient Assessment & Plan Assessment Current Active Medications: Generic Name Dose Route Start Last Admin Trade Name Freq PRN Reason Stop Dose Admin Acetaminophen 650 mg 07/11/24 03:49 Acetaminophen 325 Mg Tablet PO 08/10/24 03:48 Q6H PRN Pain and Fever >100.3 Albuterol/Ipratropium 3 ml 07/11/24 07:00 07/11/24 07:09 Albuterol/Ipratropium (Duoneb) Rt Gayla 3 Ml Nebu INH 08/10/24 06:59 3 ml Q6HRRT SONDRA Administration Benzonatate 100 mg 07/11/24 06:09 Benzonatate 100 Mg Capsule PO 08/10/24 06:08 Q8HR PRN COUGH Protocol Guaifenesin 100 mg 07/11/24 06:10 Guaifenesin Syrup 200 Mg/10 Ml Udc PO 08/10/24 06:09 QID PRN COUGH Protocol Heparin Sodium (Porcine) 5,000 unit 07/11/24 06:00 07/11/24 06:00 Heparin Sod Inj 5000 Unit/Ml Vial SC 07/25/24 05:59 5,000 unit Q8HR SONDRA Administration Ceftriaxone Sodium/Dextrose 50 mls @ 100 mls/hr 07/12/24 09:00 Rocephin/D5w 1gm Iv Premix IV 07/18/24 08:59 QDAY SONDRA Doxycycline Hyclate 100 mg/ 100 mls @ 100 mls/hr 07/11/24 21:00 Sodium Chloride IV 07/18/24 08:59 BID SONDRA Levothyroxine Sodium 50 mcg 07/11/24 06:00 07/11/24 05:58 Levothyroxine Sodium 25 Mcg Tablet PO 08/10/24 05:59 50 mcg ACBR SONDRA Administration Nicotine 21 mg 07/11/24 11:00 Nicotine Patch 21 Mg/24 Hr Patch.Td24 TOP 08/10/24 10:59 QDAY SONDRA Ondansetron HCl 4 mg 07/11/24 03:49 Ondansetron Inj 2 Mg/Ml Inj 2 Ml IV 08/10/24 03:48 Q6H PRN NAUSEA OR VOMITING Protocol Sennosides 1 tab 07/11/24 09:00 07/11/24 08:24 Senna Tablet PO 08/10/24 08:59 1 tab QDAY SONDRA Administration Protocol Plan Summary: 73-year-old male with PMH of COPD/asthma, hypothyroidism, HTN, presenting with SOB and cough, admitted for AHRF 2/2 pneumonia versus COPD/asthma exacerbation. Continued on ANTIBIOTICS, DuoNebs. Pending cultures including RSV and Legionella. Pending cardio recommendations for abdominal aortic thrombus found on CT. Appreciate recommendation from cardiology. Acute hypoxic respiratory failure 2/2 (improving) Community-acquired pneumonia COPD vs Asthma exacerbation 3/4 SIRS positive, likely sepsis (resolved) Lactic acidosis (resolved) Febrile, tachycardic, tachypneic, lactic acid on admission, all solved after IV fluids. Bedside flu and COVID-negative. CXR no pneumonia but showed mild/moderate vascular congestion ? Continue CEFTRIAXONE (07/10 to [present]) ? Continue DOXYCYCLINE (07/10 to [present]) ? Scheduled DuoNebs ? Oxygen PRN ? Pending sputum/blood cultures, RSV, Legionella, MRSA. Infrarenal AAA with Aortic thrombus, 40% stenosis CT showed 3 cm aneurysmal dilation of infrarenal abdominal aorta with significant thrombus causing 40% stenosis. Compared to CT from 2020 which showed 2.9 cm aneurysm at the same site, without thrombus. Patient need to be heparinized for this. Currently asymptomatic, intact bilateral lower extremity pulses. Denies lower extremity pain. Case discussed with cardiology over the phone who recommended BABY ASPIRIN. ? Started ASPIRIN 81 mg daily. Hypothyroidism Hypertension Holding home ANTIHYPERTENSIVE, currently normotensive ? Continued home LEVOTHYROXINE 50 mcg ? Daily vitals Tobacco dependence ? Started NICOTINE patch daily Left eye blindness Chronic, no occasions for intervention at this time. Health maintenance Diet: Cardiac GI prophylaxis: Not indicated DVT prophylaxis: HEPARIN Antibiotics: CEFTRIAXONE, DOXYCYCLINE CODE STATUS: Full code Disposition: [facility], cardiology recommendations for aortic thrombus Patient case was discussed with attending, Dr. Jose Munoz DO and senior resident Dr. Pace. Maryam Floyd DO PGYI Attending Provider Attestation/Addendum As well as I have discussed and was present for the essential components of the history, physical examination, diagnosis, and treatment plan with the resident. I agree with the patient's care as documented by the resident and amended herein by me. Eriberto Munoz DO. Patient seen and evaluated this AM. No acute events overnight, vital signs stable, patient afebrile. CBC and BMP largely unremarkable. For now we will continue ceftriaxone and doxycycline for pneumonia, cardiology also consulted for imaging findings of infrarenal AAA with possible aortic thrombus/stenosis, appreciate recommendations. Patient states he does feel improved, will continue to monitor closely [place]. Although this document has been carefully reviewed, there may still be some phonetic and other typographical errors. These errors are purely grammatical due to imperfections in the software program and should not be construed in any way to compromise the substance of the patient's medical care during this visit.
[2024-07-11] MEDS: NICOTINE PATCH 21 MG/24 HR PATCH.TD24 TOP (11:46)
[2024-07-11] MEDS: ASPIRIN EC 81 MG TABEC PO (14:10)
[2024-07-11] MEDS: ACETAMINOPHEN 325 MG TABLET 650 MG PO (23:41)
[2024-07-12] VITALS (10 sets, daily range): BP systolic 119–169; BP diastolic 59–99; PULSE 73–94; RESP 18–96; TEMP 36.1–37; O2SAT 93–100
[2024-07-12] MEDS: ALBUTEROL/IPRATROPIUM (Duoneb) RT SOL 3 ML NEBU INH ×4 (01:28→19:30)
[2024-07-12] MEDS: LEVOTHYROXINE SODIUM 25 MCG TABLET 50 MCG PO (05:20)
[2024-07-12] MEDS: HEPARIN SOD INJ 5000 UNIT/ML VIAL SC ×3 (05:22→22:22)
[2024-07-12 06:15] LABS: Basophils % (Auto) 0 % (0-2.5); Eosinophils % (Auto) 0 % (0-10); Hematocrit 42.4 % (41.0-53.0); Hemoglobin 14.1 g/dL (13.5-16.0); Immature Granulocytes % (Auto) 0 % (0-0); Immature Granulocytes Auto 0.01 Thou/mm3 (0.00-0.00); Lymphocytes # (Auto) 1.7 Thou/mm3 (1.0-4.8); Lymphocytes % (Auto) 29 % (10-50); Mean Corpuscular HGB Conc 33.3 g/dl (31.0-37.0); Mean Corpuscular Hemoglobin 28.1 pg (25.0-35.0); Mean Corpuscular Volume 85 fL (80-100); Monocytes # (Auto) 0.5 Thou/mm3 (0.0-0.8); Monocytes % (Auto) 8 % (0-12); Neutrophils # (Auto) 3.8 Thou/mm3 (1.8-7.7); Neutrophils % (Auto) 63 % (37-80); Nucleated Red Blood Cell % 0 /100 WBC (0); Platelet Count 161 Thou/mm3 (140-440); RDW Standard Deviation 43.2 fL (35.1-43.9); Red Blood Count 5.01 Miln/mm3 (4.50-5.90)
[2024-07-12 06:26] LABS: Alanine Aminotransferase 14 U/L (10-49); Albumin, Serum 3.6 gm/dL (3.4-4.8); Albumin/Globulin Ratio 1.7 (1.2-2.2); Alkaline Phosphatase 50 U/L (46-116); Anion Gap 10 (7-16); Aspartate Amino Transferase 32 U/L (0-34); BUN/Creatinine Ratio 16 Ratio (12-20); Bilirubin,Total 0.4 mg/dL (0.3-1.2); Blood Urea Nitrogen 13 mg/dL (9-23); Calcium 9.1 mg/dL (8.3-10.6); Calcium (Corrected) 9.4 mg/dL (8.5-10.1); Carbon Dioxide 24.9 mMol/L (20.0-31.0); Chloride 105 mMol/L (98-107); Creatinine (Component) 0.8 mg/dL (0.6-1.3); Estimated Creatinine Clearance 62.6 mL/min (>60); Globulin 2.1 gm/dL (2.3-3.5); Glucose 79 mg/dL (74-106); Magnesium 1.9 mg/dL (1.6-2.6); Osmolality,Calculated 278 (275-295); Phosphorous 3.8 mg/dL (2.4-5.1); Sodium 140 mMol/L (136-145); Total Protein 5.7 gm/dL (5.7-8.2); eGFR > 60 See Note
[2024-07-12] MEDS: POTASSIUM CHLORIDE 20 mEq TABCR 40 MEQ PO (08:41)
[2024-07-12] MEDS: SENNA TABLET 1 TAB PO (08:41)
[2024-07-12] MEDS: ASPIRIN EC 81 MG TABEC PO (08:41)
[2024-07-12] MEDS: NICOTINE PATCH 21 MG/24 HR PATCH.TD24 TOP (08:43)
[2024-07-12] MEDS: POTASSIUM CHL 10 mEq IVPB 10 MEQ/100 ML BAG 100 MEQ IV ×6 (08:44→14:36)
[2024-07-12] MEDS: DOXYCYCLINE INJ 100 MG in SODIUM CHLORIDE 0.9% (P) 100 ML IV ×2 (08:44→20:45)
[2024-07-12] MEDS: cefTRIAXone/D5w 1gm IV premix 50 ML IV (08:44)
--- NOTE | 2024-07-12 10:27 | PC.SS ---
Patient Blanco Gage is a 73 Year old male admitted for [facility] 08/15 PHA. SS contacted patient's daughter, Darlene Scales in order to compete initial assessment. Darlene is his surrogate decision maker. She reports patient lives at home with her. Patient utilizes a cane at home to assist with ambulation. Patient does need minimal assistance completing ADL's. Choice of pharmacy is [facility]. Darlene Reports that prior to admission patient was alert and oriented. Darlene reports patient will be returning back home, however if PT recommends PT then she is open for HH. At time of discharge patient will return back home. Next of Kin: Daughter, Darlene Scales [phone] Discharge Plan: Home- Open to HH if needed. PCP: Marvin Pisano
[2024-07-12] MEDS: Magnesium Sulfate 2 GM Ivpb 2 GM/50 ML BAG IV (11:01)
--- NOTE | 2024-07-12 11:54 | PD.RESPRO ---
Documentation for date of: 07/12/24 Subjective Subjective Interval history: No acute overnight events. Patient doing well today. He is on room air, satting well. Pending evaluation by physical therapy. Tolerating oral intake without nausea or vomiting. Denies fever, chills, headaches, chest pain, sob, cough, GI or urinary symptoms. Exam Vital Signs Temp Pulse Resp BP Pulse Ox O2 Del Method O2 Flow Rate 97.1 F 89 18 152/79 H 93 L Room Air 1 07/12/24 08:00 07/12/24 08:00 07/12/24 08:00 07/12/24 08:00 07/12/24 08:00 07/12/24 08:00 07/11/24 07:54 Narrative Exam GENERAL: Normal appearing elderly male, no apparent distress HEENT: NCAT.?DEEPIKA. Oral mucosa is moist. Patent Nares. NECK: Supple, nontender, no thyromegaly, no meningismus, no JVD, no step offs CHEST: Symmetrical, atraumatic, and with equal expansion, Nontender on palpation no deformity and no crepitus. CARDIOVASCULAR: RRR, no m/g/r LUNGS: Mild wheezing and clear breath sound bilateral. No signs of respiratory distress. ABDOMEN: Soft, flat, nontender. No guarding/rebound tenderness/masses. +BS. No abdominal bruits. EXTREMITIES: Nontender.? No edema/cyanosis.?Moves all 4 extremities well, with full ROM and good CSM. SKIN: Warm and dry, no jaundice/rashes. MSK: No lumbar or midline, no CVA, no paraspinal muscle spasm or tenderness. NEURO: PITTMAN x4, No focal neurologic deficits. Pre-existing left eye blindness. PSYCHIATRIC: Normal mood and affect, cooperative, no SI or HI or hallucinations. Objective Labs 07/12/24 05:05 07/12/24 05:05 Labs: Laboratory Results - last 24 hr 07/12/24 05:05 WBC 6.0 RBC 5.01 Hgb 14.1 Hct 42.4 MCV 85 MCH 28.1 MCHC 33.3 RDW Std Deviation 43.2 Plt Count 161 Neut % (Auto) 63 Lymph % (Auto) 29 Treasure % (Auto) 8 Eos % (Auto) 0 Baso % (Auto) 0 Neut # (Auto) 3.8 Lymph # (Auto) 1.7 Treasure # (Auto) 0.5 Eos # (Auto) 0.0 Baso # (Auto) 0.0 Immature Gran # (Auto) 0.01 H Absolute Nucleated RBC 0.00 Immature Gran % 0 Nucleated RBC % 0 Sodium 140 Potassium 3.0 L D Chloride 105 Carbon Dioxide 24.9 Anion Gap 10 BUN 13 Creatinine 0.8 Estim Creat Clear Calc 62.6 eGFR > 60 BUN/Creatinine Ratio 16 Glucose 79 Calculated Osmolality 278 Calcium 9.1 Corrected Calcium 9.4 Phosphorus 3.8 Magnesium 1.9 Total Bilirubin 0.4 AST 32 ALT 14 Alkaline Phosphatase 50 Total Protein 5.7 Albumin 3.6 Globulin 2.1 L Albumin/Globulin Ratio 1.7 Quality Measures Quality Measures sepsis Current suspected stage: ruled out Possible source: unknown Blood cultures ordered: yes Antibiotic ordered: Yes Advance care planning discussed with:: patient Assessment & Plan Assessment Current Active Medications: Generic Name Dose Route Start Last Admin Trade Name Freq PRN Reason Stop Dose Admin Acetaminophen 650 mg 07/11/24 03:49 07/11/24 23:41 Acetaminophen 325 Mg Tablet PO 08/10/24 03:48 650 mg Q6H PRN Administration Pain and Fever >100.3 Albuterol/Ipratropium 3 ml 07/11/24 07:00 07/12/24 06:44 Albuterol/Ipratropium (Duoneb) Rt Gayla 3 Ml Nebu INH 08/10/24 06:59 3 ml Q6HRRT SONDRA Administration Aspirin 81 mg 07/11/24 13:45 07/12/24 08:41 Aspirin Ec 81 Mg Tabec PO 08/10/24 13:44 81 mg QDAY SONDRA Administration Benzonatate 100 mg 07/11/24 06:09 Benzonatate 100 Mg Capsule PO 08/10/24 06:08 Q8HR PRN COUGH Protocol Guaifenesin 100 mg 07/11/24 06:10 Guaifenesin Syrup 200 Mg/10 Ml Udc PO 08/10/24 06:09 QID PRN COUGH Protocol Heparin Sodium (Porcine) 5,000 unit 07/11/24 06:00 07/12/24 05:22 Heparin Sod Inj 5000 Unit/Ml Vial SC 07/25/24 05:59 5,000 unit Q8HR SONDRA Administration Ceftriaxone Sodium/Dextrose 50 mls @ 100 mls/hr 07/12/24 09:00 07/12/24 08:44 Rocephin/D5w 1gm Iv Premix IV 07/18/24 08:59 100 mls/hr QDAY SONDRA Administration Doxycycline Hyclate 100 mg/ 100 mls @ 100 mls/hr 07/11/24 21:00 07/12/24 08:44 Sodium Chloride IV 07/18/24 08:59 100 mls/hr BID SONDRA Administration Potassium Chloride 10 meq in 100 mls @ 100 mls/hr 07/12/24 07:16 07/12/24 11:00 Kcl Ivpb IV 07/12/24 13:15 100 mls/hr Q1H SONDRA Administration Magnesium Sulfate 2 gm in 50 mls @ 25 mls/hr 07/12/24 10:00 07/12/24 11:01 Magnesium Sulfate Ivpb IV 07/12/24 11:59 25 mls/hr X1 ONE Administration Levothyroxine Sodium 50 mcg 07/11/24 06:00 07/12/24 05:20 Levothyroxine Sodium 25 Mcg Tablet PO 08/10/24 05:59 50 mcg ACBR SONDRA Administration Nicotine 21 mg 07/11/24 11:00 07/12/24 08:43 Nicotine Patch 21 Mg/24 Hr Patch.Td24 TOP 08/10/24 10:59 21 mg QDAY SONDRA Administration Ondansetron HCl 4 mg 07/11/24 03:49 Ondansetron Inj 2 Mg/Ml Inj 2 Ml IV 08/10/24 03:48 Q6H PRN NAUSEA OR VOMITING Protocol Sennosides 1 tab 07/11/24 09:00 07/12/24 08:41 Senna Tablet PO 08/10/24 08:59 1 tab QDAY SONDRA Administration Protocol Plan Summary: 73-year-old male with PMH of COPD/asthma, hypothyroidism, HTN, presenting with SOB and cough, admitted for AHRF 2/2 pneumonia versus COPD/asthma exacerbation. Continued on ANTIBIOTICS, DuoNebs. Sputum culture currently growing rare GPC/GNR, pending final culture. RSV and Legionella pending. Overall improving, however, had a fever overnight. Will likely discharge tomorrow on oral ANTIBIOTICS once culture results and continues afebrile. Appreciate recommendation from cardiology. Acute hypoxic respiratory failure 2/2 (improving) Community-acquired pneumonia COPD vs Asthma exacerbation 3/4 SIRS positive, likely sepsis (resolved) Lactic acidosis (resolved) Febrile, tachycardic, tachypneic, lactic acid on admission, all solved after IV fluids. Bedside flu and COVID-negative. CXR no pneumonia but showed mild/moderate vascular congestion. Prelim sputum culture grew rare GPC/GNR. Febrile overnight, T104, resolved with TYLENOL. No Leukocytosis. ? Continue CEFTRIAXONE (07/10 to [present]) ? Continue DOXYCYCLINE (07/10 to [present]) ? Scheduled DuoNebs ? Oxygen PRN ? Pending sputum/blood cultures, RSV, Legionella, MRSA. Infrarenal AAA with Aortic thrombus, 40% stenosis CT showed 3 cm aneurysmal dilation of infrarenal abdominal aorta with significant thrombus causing 40% stenosis. Compared to CT from 2020 which showed 2.9 cm aneurysm at the same site, without thrombus. Patient need to be heparinized for this. Currently asymptomatic, intact bilateral lower extremity pulses. Denies lower extremity pain. Case discussed with cardiology over the phone who recommended BABY ASPIRIN. ? Started ASPIRIN 81 mg daily. Hypothyroidism Hypertension Holding home ANTIHYPERTENSIVE, currently normotensive. ? Continued home LEVOTHYROXINE 50 mcg ? Resumed home LISINOPRIL 20 mg daily ? Daily vitals Electrolyte Abnormalities 07/12, potassium 3.0, repleted ? Daily CMP Tobacco dependence ? Started NICOTINE patch daily Left eye blindness Chronic, no occasions for intervention at this time. Health maintenance Diet: Cardiac GI prophylaxis: Not indicated DVT prophylaxis: HEPARIN Antibiotics: CEFTRIAXONE, DOXYCYCLINE CODE STATUS: Full code [facility]: [facility], cardiology recommendations for aortic thrombus Patient case was discussed with attending, Dr. Jose Munoz DO and senior residents Dr. Pace and Dr. Bhandari. Maryam Floyd DO PGYI Attending Provider Attestation/Addendum I have discussed and was present for the essential components of the history, physical examination, diagnosis, and treatment plan with the resident. I agree with the patient's care as documented by the resident and amended herein by me. Eriberto Munoz DO.: Although this document has been carefully reviewed, there may still be some phonetic and other typographical errors. These errors are purely grammatical due to imperfections in the software program and should not be construed in any way to compromise the substance of the patient's medical care during this visit.
--- NOTE | 2024-07-12 14:41 | PC.SS ---
Rounding note: pending cultures, possible discharge tomorrow 07/13.
--- NOTE | 2024-07-12 16:43 | PC.PT ---
PT eval only. Patient is xI with bed mobility, and transfers. Patient is safe to ambulate in the wallis and to the bathroom with a FWW and staff assistance. RN notified.
[2024-07-13] VITALS (9 sets, daily range): BP systolic 142–158; BP diastolic 65–105; PULSE 75–99; RESP 16–95; TEMP 36.2–36.8; O2SAT 93–99
--- NOTE | 2024-07-13 00:24 | ESPR_ITS ---
RE: HALEY TRIPATHI : 1950 DATE OF SERVICE: 07/12/2024 SUBJECTIVE: I saw him yesterday. My consultation report is not on the chart, but patient is admitted to the hospital with dehydration, shortness of breath, myalgia, diagnosed to have hypoxic respiratory failure, community acquired pneumonia,_ and COPD. Incidentally found to have abdominal aorta abnormal finding, _ , was discovered with thrombus. I looked at the film myself. There is no thrombus. The patient has 3 cm distal abdominal aorta slightly dilated, atherosclerotic plaque, atheroma, clearly not a thrombus. Unlikely for thrombus to stay in the aorta like distal aorta in 3 cm without embolizing. The patient clinically did not have any distal embolization manifestation, doing quite well, does not complain of ANY PAIN PHYSICAL EXAMINATION: Vital Signs: Blood pressure 160/90, pulse rate is 85, respiratory rate 18, and temperature normal. HEENT: Head is atraumatic and normocephalic. Eyes normal. ENT normal. Neck: Supple. No JVD. Lungs: Decreased breath sounds. No rales. Heart: , distant. Abdomen: Thin and soft. Extremities: Mild edema. LABORATORY DATA: Hemoglobin 14. Chemistry panel is normal. White count is normal. Potassium is slightly low at 3.0. IMPRESSION: 1. Dilated distal abdominal aorta, 3 cm, not aneurysmal, with calcification, there is atheroma, unlikely to be thrombus, just a _ with extensive atherosclerotic plaque. 2. Pneumonia. 3. Moderate to severe hypertension. RECOMMENDATIONS: Continue medical management. Recommend continue lisinopril for hypertension and aggressive management of hypertension since the patient has slightly dilated distal abdominal aorta, infrarenal abdominal aorta. As far as atheroma is concerned, patient should be treated with statin therapy depending on levels of LDL cholesterol below 100. DT: 22:57:20 TT: 23:45:00 Ref: [id number] - TID: [id number] [facility]
[2024-07-13] MEDS: ALBUTEROL/IPRATROPIUM (Duoneb) RT SOL 3 ML NEBU INH ×3 (00:35→12:23)
[2024-07-13] MEDS: LEVOTHYROXINE SODIUM 25 MCG TABLET 50 MCG PO (05:18)
[2024-07-13] MEDS: HEPARIN SOD INJ 5000 UNIT/ML VIAL SC (05:19)
[2024-07-13 06:00] LABS: Basophils % (Auto) 0 % (0-2.5); Eosinophils % (Auto) 0 % (0-10); Hematocrit 43.7 % (41.0-53.0); Hemoglobin 14.7 g/dL (13.5-16.0); Immature Granulocytes % (Auto) 0 % (0-0); Immature Granulocytes Auto 0.02 Thou/mm3 (0.00-0.00); Lymphocytes # (Auto) 1.6 Thou/mm3 (1.0-4.8); Lymphocytes % (Auto) 37 % (10-50); Mean Corpuscular HGB Conc 33.6 g/dl (31.0-37.0); Mean Corpuscular Hemoglobin 27.9 pg (25.0-35.0); Mean Corpuscular Volume 83 fL (80-100); Monocytes # (Auto) 0.4 Thou/mm3 (0.0-0.8); Monocytes % (Auto) 9 % (0-12); Neutrophils # (Auto) 2.4 Thou/mm3 (1.8-7.7); Neutrophils % (Auto) 54 % (37-80); Nucleated Red Blood Cell % 0 /100 WBC (0); Platelet Count 181 Thou/mm3 (140-440); RDW Standard Deviation 42.5 fL (35.1-43.9); Red Blood Count 5.26 Miln/mm3 (4.50-5.90); White Blood Count 4.5 Thou/mm3 (3.8-10.6)
[2024-07-13 07:03] LABS: Alanine Aminotransferase 13 U/L (10-49); Albumin, Serum 4.1 gm/dL (3.4-4.8); Alkaline Phosphatase 52 U/L (46-116); Anion Gap 11 (7-16); Aspartate Amino Transferase 24 U/L (0-34); BUN/Creatinine Ratio 16 Ratio (12-20); Bilirubin,Total 0.5 mg/dL (0.3-1.2); Blood Urea Nitrogen 11 mg/dL (9-23); Calcium 8.9 mg/dL (8.3-10.6); Calcium (Corrected) 8.9 mg/dL (8.5-10.1); Carbon Dioxide 22.5 mMol/L (20.0-31.0); Chloride 106 mMol/L (98-107); Creatinine (Component) 0.7 mg/dL (0.6-1.3); Estimated Creatinine Clearance 71.5 mL/min (>60); Globulin 2.1 gm/dL (2.3-3.5); Glucose 84 mg/dL (74-106); Osmolality,Calculated 275 (275-295); Phosphorous 3.4 mg/dL (2.4-5.1); Potassium 3.7 mMol/L (3.4-5.1); Sodium 139 mMol/L (136-145); Total Protein 6.2 gm/dL (5.7-8.2); eGFR > 60 See Note
[2024-07-13] MEDS: DOXYCYCLINE INJ 100 MG in SODIUM CHLORIDE 0.9% (P) 100 ML IV (08:04)
[2024-07-13] MEDS: ASPIRIN EC 81 MG TABEC PO (08:04)
[2024-07-13] MEDS: Lisinopril 20 MG TABLET PO (08:04)
[2024-07-13] MEDS: SENNA TABLET 1 TAB PO (08:04)
[2024-07-13] MEDS: NICOTINE PATCH 21 MG/24 HR PATCH.TD24 TOP (08:04)
[2024-07-13] MEDS: cefTRIAXone/D5w 1gm IV premix 50 ML IV (08:05)
--- NOTE | 2024-07-13 08:50 | PC.SS ---
Physical therapy informed that the patient will need a front wheel walker. Walkers The diagnosis creates mobility limitation that significantly impairs ability to participate in the patients activities of daily living either in their entirety, or in a reasonable time frame. Also the patient is able to safely use the walker and the patient?s mobility is sufficiently resolved with the use of the walker and cane has been ruled out.
--- NOTE | 2024-07-13 09:11 | PC.SS ---
Addendum entered by MARLYN Liu 07/13/24 12:11: Received a call from [employer], DME vendor. They informed the patient's DME to be delivered to the patient's home today. Original Note: DME referral sent via [employer] platform.
--- NOTE | 2024-07-13 12:15 | PC.NURSE ---
refused bed alarm, wants door closed
--- NOTE | 2024-07-13 13:20 | ESDS_ITS ---
Planned Discharge Date 07/13/24 DS: Providers Provider Date of admission: 07/11/24 03:44 Primary care physician: Marvin Pisano MD Admitting Provider: Patrice Gomez MD Attending Provider on Admission: Patrice Gomez MD Consults: 07/11/24 06:49 Referral Infection Control Routine Comment: Reason for Infection Control Referral: Multiple ABX (>2) 07/11/24 10:33 Consult to Cardiology Routine Comment: infrarenal aneurysm with 3cm thrombus Consulting Provider: Nestor Sinclair 07/11/24 11:58 Referral Physical Therapy Routine Comment: Physician Instructions: Attending Provider on DC: Dr. Jose Munoz DO Discharging Provider: Dr. Jose Munoz DO DS: Diagnosis Problem List Completed Was Problem List Reviewed/Reconciled?: Yes Hospital Course Hospital Course Hospital course: This is a 73-year-old male with PMH of COPD/asthma, hypothyroidism, HTN, presenting with SOB and cough, admitted for AHRF and sepsis 2/2 pneumonia, v ersus COPD/asthma exacerbation. Continued on ANTIBIOTICS, DuoNebs. Sputum culture currently growing rare GPC/GNR, MRSA/RSV were negative. Legionella pending. Symptoms improved since admission. At the time of discharge patient was asymptomatic, at baseline. Patient worked with physical therapy cleared patient for discharge to home. Patient will continue ANTIBIOTICS outpatient. Additionally, CT showed 3 cm aneurysmal dilation of infrarenal abdominal aorta with significant thrombus causing 40% stenosis. Compared to CT from 2020 which showed 2.9 cm aneurysm at the same site, without thrombus. Patient was started on ASPIRIN per cardiology recommendations. He'll continue ANTIHYPERTENSIVE medications as prescribed below. PATIENT INSTRUCTIONS: Follow-up with PCP within 1 week of discharge. Highly encouraged smoking cessation. Please discuss this with the PCP and continue taking NICOTINE patch and lozenges. Recommended close monitoring of aortic aneurysm, please discuss with PCP. Return to Emergency Room if symptoms persist, worsen, or new symptoms develop. Continue taking medications as prescribed below: ? AMLODIPINE 5 mg daily (NEW) ? LISINOPRIL 20 mg once daily (dose changed) ? ASPIRIN 81 mg daily (NEW) ? BENZONATATE 100 mg every 4 hours for cough (NEW) ? DOXYCYCLINE 100 mg twice daily (NEW) ? NICOTINE patch, once daily (NEW) ? NICORETTE lozenges 2 mg every 3 hours as needed for NICOTINE craving (NEW) ? ALBUTEROL inhaler 2 puffs every 6 hours ? BACLOFEN 5 mg daily ? MELOXICAM 7.5 mg every 12 hours ADMISSION DIAGNOSES: Acute hypoxic respiratory failure 2/2 (improving) Community-acquired pneumonia COPD vs Asthma exacerbation 3/4 SIRS positive, likely sepsis (resolved) Lactic acidosis (resolved) Infrarenal AAA with Aortic thrombus, 40% stenosis Hypothyroidism Hypertension Electrolyte Abnormalities Tobacco dependence Left eye blindness Time Spent with Patient Time attestation: Total time spent providing and/or coordinating discharge services: Greater than 35 minutes. Exam Vital Signs Temp Pulse Resp BP Pulse Ox O2 Del Method O2 Flow Rate 97.2 F 92 22 H 142/65 H 99 Room Air 1 07/13/24 12:07/13/24 12:07/13/24 12:07/13/24 12:07/13/24 12:07/13/24 12:07/12/24 16:00 Narrative Exam GENERAL: Normal appearing elderly male, no apparent distress HEENT: NCAT.?DEEPIKA. Oral mucosa is moist. Patent Nares. NECK: Supple, nontender, no thyromegaly, no meningismus, no JVD, no step offs CHEST: Symmetrical, atraumatic, and with equal expansion, Nontender on palpation no deformity and no crepitus. CARDIOVASCULAR: RRR, no m/g/r LUNGS: Mild wheezing and clear breath sound bilateral. No signs of respiratory distress. ABDOMEN: Soft, flat, nontender. No guarding/rebound tenderness/masses. +BS. No abdominal bruits. EXTREMITIES: Nontender.? No edema/cyanosis.?Moves all 4 extremities well, with full ROM and good CSM. SKIN: Warm and dry, no jaundice/rashes. MSK: No lumbar or midline, no CVA, no paraspinal muscle spasm or tenderness. NEURO: PITTMAN x4, No focal neurologic deficits. Pre-existing left eye blindness. PSYCHIATRIC: Normal mood and affect, cooperative, no SI or HI or hallucinations. Discharge Plan Plan Patient Disposition: HOME (Self Care) Patient condition on transfer: Stable Prescriptions/Referrals Prescriptions/Med Rec: New aspirin 81 mg Tablet,Delayed Release (Dr/Ec) 81 mg PO QDAY 30 Days Qty: 30 0RF benzonatate 100 mg Capsule 100 mg PO Q8HR PRN (Reason: Cough) 7 Days Qty: 14 0RF nicotine 21 mg/24 hr Patch 24 Hour 21 mg top QDAY 30 Days Qty: 30 0RF doxycycline hyclate 100 mg tablet 100 mg PO BID 3 Days Qty: 6 0RF nicotine (polacrilex) [Nicorette] 2 mg lozenge 2 mg buccal Q3H MDD 16 PRN (Reason: nicotine cravings) 30 Days Qty: 216 1RF amlodipine 5 mg tablet 5 mg PO QDAY 30 Days Qty: 30 0RF Continued albuterol sulfate 90 mcg/actuation HFA aerosol inhaler 2 puff inhalation Q6H PRN (Reason: shortness of breath or wheezing) Qty: 8.5 0RF meloxicam 7.5 mg tablet 7.5 mg PO Q12H PRN (Reason: not listed on rx pt says pain) Patient Comments: TAKE 1 TABLET BY MOUTH EVERY 12 HOURS NEEDED baclofen 5 mg tablet 5 mg PO QDAY PRN (Reason: Muscle Pain stated by pt) Patient Comments: TAKE 1 TABLET BY MOUTH EVERY DAY NEEDED Changed lisinopril 10 mg tablet 20 mg PO DAILY 30 Days Qty: 30 0RF Patient Comments: TAKE 1 TABLET BY MOUTH EVERY 12 HOURS Referrals: Marvin Pisano MD [Primary Care Provider] - Patient/Caregiver Discharge Instructions Other Discharge Activity Instructions:: Follow-up with PCP within 1 week of discharge. Highly encouraged smoking cessation. Please discuss this with the PCP and continue taking NICOTINE patch and lozenges. Recommended close monitoring of aortic aneurysm, please discuss with PCP. Return to Emergency Room if symptoms persist, worsen, or new symptoms develop. Continue taking medications as prescribed below: ? AMLODIPINE 5 mg daily (NEW) ? LISINOPRIL 20 mg once daily (dose changed) ? ASPIRIN 81 mg daily (NEW) ? BENZONATATE 100 mg every 4 hours for cough (NEW) ? DOXYCYCLINE 100 mg twice daily (NEW) ? NICOTINE patch, once daily (NEW) ? NICORETTE lozenges 2 mg every 3 hours as needed for NICOTINE craving (NEW) ? ALBUTEROL inhaler 2 puffs every 6 hours ? BACLOFEN 5 mg daily ? MELOXICAM 7.5 mg every 12 hours Education Materials: Sepsis, Understanding Sepsis Print Language: Bahamian Stand Alone Forms: Fiona Award Info., Patient Portal Info Letter Discharge Order Discharge Orders: Discharge (Routine); Ordered 12/31/24 Ordered By: Isabella Pace Quality Discharge Quality Measures VTE prophylaxis Attestestation MD Attestation I have discussed and was present for the essential components of the discharge history, physical examination, diagnosis, and discharge treatment plan with the resident. I agree with the patient's discharge care as documented by the resident and amended herein by me. Eriberto Munoz DO. The patient understood all discharge instructions, all questions were answered satisfactorily. The patient was instructed to return to the Emergency Department is symptoms worsened or persisted. Patient was stable, tolerating p.o. intake and afebrile at time of discharge. Patient discharged on lisinopril 20 mg daily and amlodipine 5 mg daily, as well as aspirin 81 mg daily per cardiology recommendations. Will need close follow-up with primary care provider for further management of his blood pressure and AAA. Patient will also be discharged for a continued short course of oral doxycycline for CAP. Patient was also extensively counseled on the necessity for smoking cessation in which she states he would indeed quit. Patient was stable, afebrile, tolerating p.o. intake and ambulatory time of discharge. Although this document has been carefully reviewed, there may still be some phonetic and other typographical errors. These errors are purely grammatical due to imperfections in the software program and should not be construed in any way to compromise the substance of the patient's medical care during this visit.
[2024-07-16 06:38] LABS: Legionella Ag, EIA, Urine* NOT DETECTED
== END 2024-07-13 13:30 | disposition home or self-care (01) | DRG 871 ==
LOC: SERX 22:20 → SERHOLD 07-11 04:05 → S3SX 07-11 05:37
PROVIDERS: Admitting Provider Internal Medicine; Emergency Provider Emergency Medicine; PCP Family Medicine; Visit Provider Internal Medicine
DX: A41.9 Sepsis, unspecified organism (principal); J18.9 Pneumonia, unspecified organism; J96.01 Acute respiratory failure with hypoxia; J44.0 Chronic obstructive pulmonary disease with (acute) lower respiratory infection; E87.20 Acidosis, unspecified; I74.10 Embolism and thrombosis of unspecified parts of aorta; J44.1 Chronic obstructive pulmonary disease with (acute) exacerbation; J45.901 Unspecified asthma with (acute) exacerbation; K80.20 Calculus of gallbladder without cholecystitis without obstruction; K57.30 Diverticulosis of large intestine without perforation or abscess without bleeding; H54.62 Unqualified visual loss, left eye, normal vision right eye; I10 Essential (primary) hypertension; I71.43 Infrarenal abdominal aortic aneurysm, without rupture; R31.29 Other microscopic hematuria; E03.9 Hypothyroidism, unspecified; E86.0 Dehydration; F17.290 Nicotine dependence, other tobacco product, uncomplicated; Z79.82 Long term (current) use of aspirin; Z79.899 Other long term (current) drug therapy
CPT/HCPCS: 36415; 71045; 74177; 80053; 80061; 81001; 83605; 83615; 83690; 83735; 83880; 84100; 84145; 84443; 84484; 85025; 85610; 85730; 87040; 87081; 87086; 87205; 87400; 87449; 87634; 87811; 93005; 93225; 94640; 96365; 96366; 96367; 96368; 97162; 99291; A4649; A9270; J0131; J0696; J1643; J2543; J3371; J3475; J3480; J3490; J7030; J7050; Q9967; J1644; J3370

== ENCOUNTER → 2025-01-27 | Outpatient (CLI) | payer MEDICARE, SELFPAY ==
--- NOTE | 2025-01-27 13:40 | XR_ITS ---
Examination: Bone densitometry Date and time of exam:January 27, 2025 1404 hours INDICATIONS: 74-year-old male with diagnosis age related osteoporosis, Synthroid one year Technique: Lumbar spine and hip total bone mineralization values of an calculated. Peak reference and age match control results have been displayed. Findings: Lumbar spine total bone mineralization is1.179 gm/cm2. This is 0.8 standard deviations above peak reference. This is 1.8 standard deviations above age-matched controls. Hip total bone mineralization is 0.771 gm/cm2 This is 1.7 standard deviations below peak reference. This is 0.9 standard deviations above age-matched controls Impression: There is normal mineralization based on lumbar spine measurements. There is osteoporosis based on hip measurements
== END | disposition home or self-care (01) ==
PROVIDERS: PCP Family Medicine; Referring Provider Family Medicine; Visit Provider Family Medicine
DX: M81.0 Age-related osteoporosis without current pathological fracture (principal)
CPT/HCPCS: 77080

== ENCOUNTER → 2025-02-01 | Outpatient (CLI) | payer MEDICARE, SELFPAY ==
[2025-02-01 09:28] LABS: Thyroid Stimulating Hormone 2.59 uIU/mL (0.55-4.78)
[2025-02-01 09:33] LABS: Collection Type, Urine Clean Catch; Squamous Epithelial Cell,Urine 0 /hpf (0-5)
[2025-02-01 10:12] LABS: Bilirubin,Urine Negative (Negative); Blood,Urine 1+ (Negative); Clarity,Urine Clear (Clear/Hazy); Color,Urine Lt-Yellow (Lt Yel-Yel); Glucose, Urine Negative (Negative); Ketones,Urine Negative (Negative); Leukocyte Esterase,Urine Negative (Negative); Nitrite,Urine Negative (Negative); PH,Urine 5.5 (5.0-7.0); Protein,Urine Negative (Neg - Trace); RBC,Urine 3 /hpf (0-3); Specific Gravity,Urine 1.019 (1.001-1.035); Urobilinogen,Urine Negative mg/dL (0.0-1.0); WBC,Urine < 1 /hpf (0-5)
== END | disposition home or self-care (01) ==
LOC: COPL 08:12
PROVIDERS: PCP Family Medicine; Referring Provider Family Medicine; Visit Provider Family Medicine
DX: E03.9 Hypothyroidism, unspecified (principal); R31.21 Asymptomatic microscopic hematuria
CPT/HCPCS: 36415; 81001; 84443

== ENCOUNTER → 2025-06-20 | Outpatient (CLI) | payer MEDICARE, MEDICAID, SELFPAY ==
[2025-06-20 09:33] LABS: Thyroid Stimulating Hormone 3.37 uIU/mL (0.55-4.78)
== END | disposition home or self-care (01) ==
LOC: COPL 07:44
PROVIDERS: PCP Family Medicine; Referring Provider Family Medicine; Visit Provider Family Medicine
DX: E03.9 Hypothyroidism, unspecified (principal)
CPT/HCPCS: 36415; 84443